=== PATIENT | male | born 1970 | race Asian ===

== ENCOUNTER 2016-12-26 09:55 | Emergency (ER) | payer MEDICAID ==
[~2016-12-26] VITALS: Ht 172.7 cm; Wt 88.5 kg
[2016-12-26 11:46] VITALS: BP 150/93
== END 2016-12-26 11:46 | disposition home or self-care (01) ==
LOC: ED 09:55
DX: D22.5 Melanocytic nevi of trunk (principal)

== ENCOUNTER 2018-10-06 18:52 | Emergency (ER) | payer MEDICAID ==
[~2018-10-06] VITALS: Ht 172.7 cm; Wt 87.5 kg
[2018-10-06 19:00] VITALS: Ht 172.7 cm; Wt 87.5 kg
[2018-10-06 22:13] VITALS: BP 128/79
== END 2018-10-06 22:14 | disposition home or self-care (01) ==
LOC: ED 18:52
DX: S13.4XXA Sprain of ligaments of cervical spine, initial encounter (principal); S09.8XXA Other specified injuries of head, initial encounter; I10 Essential (primary) hypertension; V18.4XXA Pedal cycle driver injured in noncollision transport accident in traffic accident, initial encounter; Y93.I9 Activity, other involving external motion; Y92.488 Other paved roadways as the place of occurrence of the external cause; Y99.8 Other external cause status
CPT/HCPCS: 90715; J8597